=== PATIENT | male | born 1990 | race Two or more races ===

== ENCOUNTER 2017-05-20 10:26 | Emergency (ER) | payer BC ==
[2017-05-20 10:44] VITALS: BP 157/78
[2017-05-20] MEDS ORDERED: Aspirin Low Dose CHEW TAB* 81 MG PO ONE (11:08)
--- NOTE | 2017-05-26 23:50 | UC ---
Lyle Pratt Angela, scribed for Debora Zamorano MD on 05/20/17 at 1036 . General HPI - HPI Summary HPI Summary: This pt is a 27 y/o male presenting to [facility] c/o episodic sob and palpitations for the last couple of days, worsening last night. He reports that yesterday he felt his heart beating fast, cold, sweaty, irritation in his throat. Pt states that he feels like the food he eats is coming back up. Pt notes difficulty sleeping secondary to his symptoms. Pt additionally notes his fingers were tingling and drawing up, and had dry mouth. He currently notes feeling ok. Pt denies rash, fever, urinary symptoms, diarrhea, constipation, melena. Pt states that he has had 3 recurrent episodes with these symptoms. The first episode happened at the end of April, which lasted 1-2 hours. He reports he drinks alcohol occasionally usually weekend, socially and the last time he drank was 2 days ago. Pt states prior to this the last time he drank was in April. Pt does not have a PCP. 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 PMH - anemia (G6PD def - pt thinks so, but not exactly sure) - History of Current Complaint Stated Complaint: COUGH,COLD,PALPITATIONS Time Seen by Provider: 05/20/17 10:30 Hx Obtained From: Patient Onset/Duration: Lasting Days, Still Present Timing: Constant Current Severity: Moderate Pain Intensity: 4 - out of 10 Pain Location at: chest Aggravating: nothing Alleviating: nothing Associated Signs & Symptoms: Positive: Cough, Chest Pain, Palpitations, Other - POS: tingling and drawing up of fingers. NEG: rash, urinary symptoms, constipation, diarrhea.. Negative: Fever - Allergy/Home Medications Allergies/Adverse Reactions: Allergies Allergy/AdvReac Type Severity Reaction Status Date / Time No Known Allergies Allergy Verified 05/20/17 10:44 Home Medications: Home Medications NK [No Home Medications Reported] 05/20/17 [History Confirmed 05/20/17] PMH/Surg Hx/FS Hx/Imm Hx Previously Healthy: Yes Other Endocrine History: DENIES: diabetes Other Cardiovascular History: DENIES: HTN - Family History Known Family History: Positive: Other - Mother: hypothyroidism. Fanconi anemia ( sister). 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 [employer] Alcohol Use: Occasionally Substance Use Type: None Smoking Status (MU): Never Smoked Tobacco Review of Systems Constitutional: Negative Skin: Negative Eyes: Negative ENT: Other - throat discomfort Respiratory: Cough Cardiovascular: Palpitations, Chest Pain Gastrointestinal: Negative Genitourinary: Negative Motor: Negative Neurovascular: Negative Musculoskeletal: Negative Neurological: Other - tingling and drawing up of fingers All Other Systems Reviewed And Are Negative: Yes Physical Exam Triage Information Reviewed: Yes Appearance: Well-Nourished Vital Signs: Initial Vital Signs Temp 99 F 05/20/17 10:38 Pulse 78 05/20/17 10:38 Resp 22 05/20/17 10:38 BP 157/78 05/20/17 10:38 Pulse Ox 99 05/20/17 10:38 Vital Signs Reviewed: Yes Eye Exam: Normal ENT Exam: Normal Respiratory: Positive: Chest non-tender, Lungs clear, Normal breath sounds, No respiratory distress, No accessory muscle use Cardiovascular: Positive: RRR, No Murmur, Pulses Normal, Brisk Capillary Refill Abdomen Description: Positive: Nontender, No Organomegaly, Soft Bowel Sounds: Positive: Present Musculoskeletal Exam: Normal Musculoskeletal: Positive: Strength Intact - moves all 4 ext's Neurological Exam: Normal - nonfocal, grossly intact Psychological Exam: Normal - conversing easily and appropriately Skin Exam: Normal - no visible or reported rash Course/Dx - Course Course Of Treatment: Diff dx is myriad. Viral illness, electrolyte d/o, cardiopulm d/o (including valvular), hematological,endocrinological. Has not yet established care here in [place]. Recommend further eval / tx in ED. Mr. Murguia carefully considered thsiPatient offered and encouraged EMS. Patient declines, he will drive himself to the ED. I spoke wtih ADAL Mckeon from [facility]. - Differential Dx - Multi-Symptom Provider Diagnoses: chest pain, palpitations Discharge - Discharge Plan Condition: Stable Disposition: [facility] Patient Education Materials: Heart Palpitations (ED) Referrals: [facility] @ [Outside] Additional Instructions: Go directly to the Emergency Department. Please call 911 for any problems en route. The documentation as recorded by the Lyle rose Angela accurately reflects the service I personally performed and the decisions made by me, Debora Zamorano MD.
== END 2017-05-20 11:18 | disposition short-term general hospital (02) ==
LOC: UCEAST 10:26
DX: R07.89 Other chest pain (principal); R06.02 Shortness of breath; R00.2 Palpitations; R20.2 Paresthesia of skin
CPT/HCPCS: 87502; 93005; 99212; A9270-GY; G0463

== ENCOUNTER 2017-05-20 12:05 | Emergency (ER) | payer BC ==
[2017-05-20 14:35] LABS: Hematocrit 42 % (42-52); Hemoglobin 13.7 g/dl (14.0-18.0); Mean Corpuscular HGB Conc 32 g/dl (31-36); Mean Corpuscular Hemoglobin 19 pg (27-31); Mean Corpuscular Volume 59 fL (80-94); Mean Platelet Volume 9 um3 (7.4-10.4); Platelet Count 179 10^3/ul (150-450); Red Blood Count 7.19 10^6/ul (4.0-5.4); Red Cell Distribution Width 16 % (10.5-15)
[2017-05-20 14:45] LABS: EGFR Non-African American 85.4 (>60)
[2017-05-20 15:01] LABS: INR 1.07 (0.77-1.02)
[2017-05-20 15:25] LABS: ABS Basophils 0.1 10^3/ul (0-0.2); ABS Eosinophils 0.9 10^3/ul (0-0.6); ABS Lymphocytes 1.4 10^3/ul (1.0-4.8); ABS Monocytes 0.4 10^3/ul (0-0.8); ABS Neutrophils 5.2 10^3/ul (1.5-7.7); ABS Nucleated RBC 0 10^3/ul; Eosinophil % 11.7 % (0-6); Lymphocyte % 16.9 % (25-47); Nucleated Red Blood Cells % 0.1
--- NOTE | 2017-05-20 15:36 | RAD ---
INDICATION: Palpitations COMPARISON: Chest x-ray March 09, 2016 TECHNIQUE: PA and lateral views of the chest were obtained. FINDINGS: The heart and mediastinum are normal in size and contour. The lungs are grossly clear. There is no evidence of large pleural effusion. Visualized bones are normal for the patient's age. There is no radiographic evidence of free air beneath the diaphragm IMPRESSION: No radiographic evidence of acute cardiopulmonary disease.
[2017-05-20 16:11] VITALS: BP 132/70
--- NOTE | 2017-05-20 20:57 | ED ---
Quinn Pratt Thomas, scribed for Norbert Mendez on 05/20/17 at 1417 . Palpitations / Dysrhythmia - HPI Summary HPI Summary: The patient is a 27 year old male presenting to the emergency department complaining of an episode of rapid palpitations that began yesterday at 19:00 and is relieved by examination in the emergency department. During this episode , he had chest pain and shortness of breath. 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 During this episode, the patient measured his heart rate at 100 BPM. The patient denies fevers. - History of Current Complaint Chief Complaint: EDDysrhythmPalp Time Seen by Provider: 05/20/17 14:00 Hx Obtained From: Patient Onset/Duration: Resolved Character: Fast Alleviating: Other - Spontaneous Associated Signs & Symptoms: Chest Pain, Shortness of Breath - Allergy/Home Medications Allergies/Adverse Reactions: Allergies Allergy/AdvReac Type Severity Reaction Status Date / Time No Known Allergies Allergy Verified 05/20/17 10:44 PMH/Surg Hx/FS Hx/Imm Hx Previously Healthy: Yes Endocrine/Hematology History: Denies: Hx Diabetes Cardiovascular History: Denies: Hx Hypertension - Surgical History Surgery Procedure, Year, and Place: Tonsillectomy when young Infectious Disease History: No Infectious Disease History: Denies: Traveled Outside the [place] in Last 30 Days - Family History Known Family History: Positive: Hypertension - Social History Alcohol Use: Occasionally Substance Use Type: Reports: None Smoking Status (MU): Never Smoked Tobacco Review of Systems Negative: Fever Positive: Palpitations, Chest Pain - yesterday, none today Positive: Shortness Of Breath - yesterday, none today Positive: Anxious All Other Systems Reviewed And Are Negative: Yes Physical Exam - Summary Physical Exam Summary: Appearance: Well appearing, no pain distress Skin: warm, dry, reflects adequate perfusion Head/face: normal Eyes: EOMI, FELIX ENT: normal Neck: supple, non-tender Respiratory: CTA, breath sounds present Cardiovascular: RRR, pulses symmetrical Abdomen: non-tender, soft Bowel: present Musculoskeletal: normal, strength/ROM intact Neuro: normal, sensory motor intact, A&Ox3 Triage Information Reviewed: Yes Vital Signs On Initial Exam: Initial Vitals Temp Pulse Resp BP Pulse Ox 99.2 F 86 16 151/84 100 05/20/17 12:07 05/20/17 12:07 05/20/17 12:07 05/20/17 12:07 05/20/17 12:07 Vital Signs Reviewed: Yes Diagnostics - Vital Signs Vital Signs Temp Pulse Resp BP Pulse Ox 05/20/17 13:41 99 F 83 20 117/37 99 05/20/17 12:07 99.2 F 86 16 151/84 100 - Laboratory Lab Results: Lab Results 05/20/17 05/20/17 05/20/17 Range/Units 14:22 14:22 14:22 WBC 8.0 (3.5-10.8) 10^3/ul RBC 7.19 H (4.0-5.4) 10^6/ul Hgb 13.7 L (14.0-18.0) g/dl Hct 42 (42-52) % MCV 59 L (80-94) fL MCH 19 L (27-31) pg MCHC 32 (31-36) g/dl RDW 16 H (10.5-15) % Plt Count 179 (150-450) 10^3/ul MPV 9 (7.4-10.4) um3 Neut % (Auto) 65.6 (38-83) % Lymph % (Auto) 16.9 L (25-47) % [place] % (Auto) 5.1 (1-9) % Eos % (Auto) 11.7 H (0-6) % Baso % (Auto) 0.7 (0-2) % Absolute Neuts (auto) 5.2 (1.5-7.7) 10^3/ul Absolute Lymphs (auto) 1.4 (1.0-4.8) 10^3/ul Absolute Monos (auto) 0.4 (0-0.8) 10^3/ul Absolute Eos (auto) 0.9 H (0-0.6) 10^3/ul Absolute Basos (auto) 0.1 (0-0.2) 10^3/ul Absolute Nucleated RBC 0 10^3/ul Nucleated RBC % 0.1 Anisocytosis 1+ Microcytosis 1+ Target Cells 1+ Hem Pathologist Commnt Pending INR (Anticoag Therapy) 1.07 H (0.77-1.02) APTT 28.9 (26.0-36.3) seconds Sodium 135 (133-145) mmol/L Potassium 3.7 (3.5-5.0) mmol/L Chloride 103 (101-111) mmol/L Carbon Dioxide 26 (22-32) mmol/L Anion Gap 6 (2-11) mmol/L BUN 15 (6-24) mg/dL Creatinine 1.05 (0.67-1.17) mg/dL Est GFR ( Amer) 109.8 (>60) Est GFR (Non-Af Amer) 85.4 (>60) BUN/Creatinine Ratio 14.3 (8-20) Glucose 110 H (70-100) mg/dL Calcium 9.7 (8.6-10.3) mg/dL Total Bilirubin 1.10 H (0.2-1.0) mg/dL AST 22 (13-39) U/L ALT 25 (7-52) U/L Alkaline Phosphatase 42 (34-104) U/L Troponin I 0.03 (<0.04) ng/mL Total Protein 7.0 (6.4-8.9) g/dL Albumin 4.5 (3.2-5.2) g/dL Globulin 2.5 (2-4) g/dL Albumin/Globulin Ratio 1.8 (1-3) TSH 2.25 (0.34-5.60) mcIU/mL Result Diagrams: 05/20/17 14:22 05/20/17 14:22 Lab Statement: Any lab studies that have been ordered have been reviewed, and results considered in the medical decision making process. - Radiology CXR Xray Interpretation: No Acute Changes - Negative CXR. Dr. Mendez has reviewed this report. Radiology Interpretation Completed By: Radiologist - EKG 12:09 Cardiac Rate: NL EKG Rhythm: Sinus Rhythm - at 77 BPM EKG Interpretation: No acute changes. Course/Dx - Course Assessment/Plan: The patient is a 27 year old male presenting to the emergency department complaining of an episode of rapid palpitations that began yesterday at 19:00 and is relieved by examination in the Bloodwork was obtained. EKG and CXR were obtained. The patient is diagnosed with palpitations. The patient is instructed to follow up with primary care. - Diagnoses Differential Diagnosis/HQI/PQRI: Positive: Panic Disorder Provider Diagnoses: Palpitations Discharge - Discharge Plan Condition: Stable Disposition: HOME Patient Education Materials: Heart Palpitations (ED) Referrals: [facility] [Primary Care Provider] - 3 Days Additional Instructions: Follow up with your primary care physician in three days. Return to the emergency department for any new or worsening symptoms. The documentation as recorded by the Quinn rose Thomas accurately reflects the service I personally performed and the decisions made by , Norbert Mendez.
== END 2017-05-20 16:11 | disposition home or self-care (01) ==
LOC: ED 12:05
DX: R00.2 Palpitations (principal); R07.9 Chest pain, unspecified; F41.9 Anxiety disorder, unspecified; R06.02 Shortness of breath
CPT/HCPCS: 36415; 71046; 80053; 84443; 84484; 85025; 85060; 85610; 85730; 93005; 99282